=== PATIENT | female | born 2000 | race Caucasian/White ===

== ENCOUNTER 2023-05-05 19:00 | Inpatient (IN) | payer OTHER, SELFPAY ==
[2023-05-05 19:12] VITALS: BMI 25.8
[2023-05-05] MEDS: Lactated Ringers 1,000 ML 50 ML IV (19:30)
[2023-05-05 19:32] VITALS: BP 128/77; PULSE 85; RESP 16; TEMP 36.4
[2023-05-05 19:44] LABS: Absolute Lymphocyte Count 2.15 X10^3/uL (0.83-4.51); Absolute Neutrophil Count 7.8 X10^3/uL (2.0-7.7); Basophil# 0.02 X10^3/uL; Basophil% 0.2 % (0-1); Eosinophil# 0.16 X10^3/uL; Eosinophils% 1.5 % (0-5); Hemoglobin 12.9 g/dL (12.0-15.0); Lymphocyte # 2.15 X10^3/ul (0.83-4.51); Lymphocyte % 20.3 % (19-41); Mean Corp Hgb Conc 33.9 g/dL (32-36); Mean Corpuscular Hgb 31.1 pg (27.0-32.0); Mean Corpuscular Volume 91.6 fL (81-99); Mean Platelet Vol. 10.3 fl (6.2-12.0); Monocyte# 0.45 X10^3/uL; Monocyte% 4.3 % (0-10); NRBC Flagged by Analyzer 0 % (0-5); Neutrophil # 7.75 X10^3/uL (2.7-7.7); Neutrophil % 73.3 % (47-70); Platelet Count 234 K/mm3 (150-450); RBC Distribution Width CV 12.2 % (11.6-14.6); Red Blood Count 4.15 M/mm3 (4.2-5.4); White Blood Count 10.6 K/mm3 (4.4-11.0)
[2023-05-05] MEDS: 0.9% Normal Saline Single 100 ML IV.SOLN. INTRA-UTER (20:30)
[2023-05-05] MEDS: fentaNYL 100 MCG/2 ML Ampul IV (20:47)
[2023-05-05 20:52] LABS: Syphilis Antibodies Non-reactive
[2023-05-05] MEDS: miSOPROStol 25 MCG TABLET VAGINAL (21:10)
[2023-05-05 21:57] VITALS: BP 132/80; PULSE 75; RESP 16; TEMP 37.1; O2SAT 97
[2023-05-05 22:58] VITALS: BP 139/86; PULSE 79; RESP 16; TEMP 36.4; O2SAT 98
[2023-05-06] VITALS (73 sets, daily range): BP systolic 98–137; BP diastolic 54–97; PULSE 74–129; RESP 11–19; TEMP 36.4–37.7; O2SAT 96–100
[2023-05-06] MEDS: LACTATED RINGERS 500 ML 999 ML IV ×2 (01:53→04:15)
[2023-05-06] MEDS: fentaNYL-bupivacaine (epidural) 100 ML BAG EPIDURAL ×4 (02:45→16:10)
[2023-05-06] MEDS: Lactated Ringers 1,000 ML 200 ML IV ×3 (05:31→16:03)
[2023-05-06] MEDS: Oxytocin 15 Units/NS 250ml 15 UNITS/250 ML IV.SOLN 2 UNITS IV (05:46)
--- NOTE | 2023-05-06 08:40 | PCM.HP.OB ---
HPI - General General Date of Admission: 05/05/23 Date of Service: 05/06/23 Chief Complaint: induction of labor HPI Narrative BARBIE VENEGAS, is a 22 F 1 para 0 who presents at 40-5/7 weeks for induction of labor. Her has been uncomplicated to date. She has a history of vaginismus and primary dysmenorrhea and anxiety. Maternal Data Information Final GHISLAINE: 04/30/23 Gestational age: 40 6/7 PFSH PFS Medical History (Updated 05/06/23 @ 08:[address] Laura Arreaga MD) Anxiety Depression Home Medications multivit no.40-iron 18 mg-folate comb no.1 1 mg-dha 300 mg capsule 1 cap PO DAILY 05/05/23 [History Last Taken 05/04/23 22:00] Allergy/AdvReac Type Severity Reaction Status Date / Time No Known Allergies Allergy Verified 05/05/23 19:28 Surgical History (Updated 05/05/23 @ 20:08 by Moon Frank) History of surgery Social History Smoking Status: Never smoker History Elective abortions Hx Para 0 Spontaneous abortions Hx # Term Pregnancies Ectopic pregnancies Hx # Pregnancies Multiple births # of living children ROS Constitutional Constitutional: Denies fatigue, fever(s) or malaise Eyes Eyes: Denies change in vision ENT HEENT: Denies dizziness or headache(s) Cardiovascular Cardiovascular: Denies chest pain, dyspnea or lightheadedness Respiratory/Chest Respiratory/Chest: Denies cough or dyspnea Gastrointestinal Gastrointestinal: Denies change in bowel habits Genitourinary Genitourinary: Denies burning urination or genital lesions Integumentary Integumentary: Denies rash Neurologic Neurologic: Denies confusion, dizziness, headache(s), numbness or weakness Vital Signs Vital Signs Vital Signs: 05/05/23 19:32 05/05/23 19:32 05/05/23 19:32 Temperature Temperature Source Temporal Pulse Rate 85 Respiratory Rate Blood Pressure 128/77 H BP Systolic 128 BP Diastolic 77 Pulse Ox 05/05/23 19:32 05/05/23 19:32 05/05/23 21:57 Temperature 97.6 F L Temperature Source Temporal Pulse Rate Respiratory Rate 16 Blood Pressure BP Systolic BP Diastolic Pulse Ox 05/05/23 21:57 05/05/23 21:57 05/05/23 21:57 Temperature Temperature Source Pulse Rate 75 Respiratory Rate 16 Blood Pressure 132/80 H BP Systolic 132 BP Diastolic 80 Pulse Ox 05/05/23 21:57 05/05/23 21:57 05/05/23 22:58 Temperature 98.7 F Temperature Source Pulse Rate Respiratory Rate Blood Pressure 139/86 H BP Systolic 139 BP Diastolic 86 Pulse Ox 97 05/05/23 22:58 05/05/23 22:58 05/05/23 22:58 Temperature Temperature Source Pulse Rate 79 Respiratory Rate 16 Blood Pressure BP Systolic BP Diastolic Pulse Ox 98 05/05/23 22:58 05/05/23 22:58 05/06/23 00:00 Temperature 97.6 F L Temperature Source Pulse Rate Respiratory Rate Blood Pressure 130/84 H BP Systolic 130 BP Diastolic 84 Pulse Ox 98 05/06/23 00:00 05/06/23 00:00 05/06/23 00:00 Temperature Temperature Source Pulse Rate 84 85 Respiratory Rate Blood Pressure BP Systolic BP Diastolic Pulse Ox 98 05/06/23 00:00 05/06/23 00:00 05/06/23 00:00 Temperature Temperature Source Temporal Pulse Rate Respiratory Rate 16 Blood Pressure BP Systolic BP Diastolic Pulse Ox 98 05/06/23 00:00 05/06/23 00:53 05/06/23 00:53 Temperature 97.9 F Temperature Source Pulse Rate 80 Respiratory Rate Blood Pressure 125/72 H BP Systolic 125 BP Diastolic 72 Pulse Ox 05/06/23 00:52 05/06/23 00:52 05/06/23 00:52 Temperature Temperature Source Temporal Pulse Rate Respiratory Rate 16 Blood Pressure BP Systolic BP Diastolic Pulse Ox 98 05/06/23 00:52 05/06/23 02:06 05/06/23 02:06 Temperature 98.0 F Temperature Source Temporal Pulse Rate Respiratory Rate Blood Pressure 132/77 H BP Systolic 132 BP Diastolic 77 Pulse Ox 05/06/23 02:06 05/06/23 02:06 05/06/23 02:06 Temperature 97.9 F Temperature Source Pulse Rate 78 Respiratory Rate 16 Blood Pressure BP Systolic BP Diastolic Pulse Ox 05/06/23 02:33 05/06/23 02:33 05/06/23 02:32 Temperature Temperature Source Pulse Rate 102 H 97 Respiratory Rate Blood Pressure 137/90 H BP Systolic 137 BP Diastolic 90 Pulse Ox 05/06/23 02:32 05/06/23 02:38 05/06/23 02:38 Temperature Temperature Source Pulse Rate 100 Respiratory Rate Blood Pressure 133/86 H BP Systolic 133 BP Diastolic 86 Pulse Ox 99 05/06/23 02:37 05/06/23 02:37 05/06/23 02:42 Temperature Temperature Source Pulse Rate 100 105 H Respiratory Rate Blood Pressure BP Systolic BP Diastolic Pulse Ox 99 05/06/23 02:42 05/06/23 02:46 05/06/23 02:46 Temperature Temperature Source Pulse Rate 87 Respiratory Rate Blood Pressure 118/66 BP Systolic 118 BP Diastolic 66 Pulse Ox 100 05/06/23 02:47 05/06/23 02:47 05/06/23 02:47 Temperature Temperature Source Temporal Pulse Rate 91 Respiratory Rate 16 Blood Pressure BP Systolic BP Diastolic Pulse Ox 05/06/23 02:47 05/06/23 02:47 05/06/23 02:48 Temperature 98.3 F Temperature Source Pulse Rate Respiratory Rate Blood Pressure 115/64 BP Systolic 115 BP Diastolic 64 Pulse Ox 99 05/06/23 02:48 05/06/23 02:50 05/06/23 02:50 Temperature Temperature Source Pulse Rate 90 96 Respiratory Rate Blood Pressure 111/62 BP Systolic 111 BP Diastolic 62 Pulse Ox 05/06/23 02:53 05/06/23 02:53 05/06/23 02:52 Temperature Temperature Source Pulse Rate 103 H 101 H Respiratory Rate Blood Pressure 113/62 BP Systolic 113 BP Diastolic 62 Pulse Ox 05/06/23 02:52 05/06/23 02:40 05/06/23 02:57 Temperature Temperature Source Pulse Rate 95 Respiratory Rate 18 Blood Pressure BP Systolic BP Diastolic Pulse Ox 98 05/06/23 02:50 05/06/23 02:45 05/06/23 02:57 Temperature Temperature Source Pulse Rate Respiratory Rate 18 18 Blood Pressure BP Systolic BP Diastolic Pulse Ox 98 05/06/23 02:58 05/06/23 02:58 05/06/23 02:55 Temperature Temperature Source Pulse Rate 97 Respiratory Rate 16 Blood Pressure 116/62 BP Systolic 116 BP Diastolic 62 Pulse Ox 05/06/23 03:00 05/06/23 03:02 05/06/23 03:02 Temperature Temperature Source Pulse Rate 84 Respiratory Rate 16 Blood Pressure BP Systolic BP Diastolic Pulse Ox 99 05/06/23 03:03 05/06/23 03:03 05/06/23 03:07 Temperature Temperature Source Pulse Rate 85 119 H Respiratory Rate Blood Pressure 109/62 BP Systolic 109 BP Diastolic 62 Pulse Ox 05/06/23 03:07 05/06/23 03:09 05/06/23 03:09 Temperature Temperature Source Pulse Rate 83 Respiratory Rate Blood Pressure 113/62 BP Systolic 113 BP Diastolic 62 Pulse Ox 99 05/06/23 03:13 05/06/23 03:13 05/06/23 03:12 Temperature Temperature Source Pulse Rate 83 80 Respiratory Rate Blood Pressure 117/57 L BP Systolic 117 BP Diastolic 57 Pulse Ox 05/06/23 03:12 05/06/23 03:18 05/06/23 03:18 Temperature Temperature Source Pulse Rate 100 Respiratory Rate Blood Pressure 113/61 BP Systolic 113 BP Diastolic 61 Pulse Ox 98 05/06/23 03:17 05/06/23 03:17 05/06/23 03:23 Temperature Temperature Source Pulse Rate 87 Respiratory Rate Blood Pressure 107/55 L BP Systolic 107 BP Diastolic 55 Pulse Ox 98 05/06/23 03:23 05/06/23 03:22 05/06/23 03:22 Temperature Temperature Source Pulse Rate 96 101 H Respiratory Rate Blood Pressure BP Systolic BP Diastolic Pulse Ox 99 05/06/23 03:27 05/06/23 03:27 05/06/23 03:28 Temperature Temperature Source Pulse Rate 83 Respiratory Rate Blood Pressure 105/67 BP Systolic 105 BP Diastolic 67 Pulse Ox 100 05/06/23 03:28 05/06/23 03:32 05/06/23 03:32 Temperature Temperature Source Pulse Rate 85 90 Respiratory Rate Blood Pressure BP Systolic BP Diastolic Pulse Ox 100 05/06/23 03:34 05/06/23 03:34 05/06/23 03:37 Temperature Temperature Source Pulse Rate 96 104 H Respiratory Rate Blood Pressure 102/59 L BP Systolic 102 BP Diastolic 59 Pulse Ox 05/06/23 03:37 05/06/23 03:38 05/06/23 03:38 Temperature Temperature Source Pulse Rate 111 H Respiratory Rate Blood Pressure 112/59 L BP Systolic 112 BP Diastolic 59 Pulse Ox 100 05/06/23 03:42 05/06/23 03:42 05/06/23 03:45 Temperature Temperature Source Pulse Rate 98 Respiratory Rate Blood Pressure 103/56 L BP Systolic 103 BP Diastolic 56 Pulse Ox 100 05/06/23 03:45 05/06/23 03:48 05/06/23 03:48 Temperature Temperature Source Pulse Rate 80 83 Respiratory Rate Blood Pressure 105/58 L BP Systolic 105 BP Diastolic 58 Pulse Ox 05/06/23 03:47 05/06/23 03:47 05/06/23 04:11 Temperature Temperature Source Temporal Pulse Rate 85 Respiratory Rate Blood Pressure BP Systolic BP Diastolic Pulse Ox 100 05/06/23 04:12 05/06/23 04:12 05/06/23 04:11 Temperature Temperature Source Pulse Rate 108 H Respiratory Rate 16 Blood Pressure 98/54 L BP Systolic 98 BP Diastolic 54 Pulse Ox 05/06/23 04:11 05/06/23 04:12 05/06/23 04:12 Temperature 98.7 F Temperature Source Pulse Rate 98 Respiratory Rate Blood Pressure BP Systolic BP Diastolic Pulse Ox 99 05/06/23 04:16 05/06/23 04:16 05/06/23 04:17 Temperature Temperature Source Pulse Rate 94 88 Respiratory Rate Blood Pressure 112/67 BP Systolic 112 BP Diastolic 67 Pulse Ox 05/06/23 04:17 05/06/23 04:21 05/06/23 04:21 Temperature Temperature Source Pulse Rate 92 Respiratory Rate Blood Pressure 118/72 BP Systolic 118 BP Diastolic 72 Pulse Ox 98 05/06/23 04:22 05/06/23 04:22 05/06/23 04:26 Temperature Temperature Source Pulse Rate 108 H Respiratory Rate Blood Pressure 111/69 BP Systolic 111 BP Diastolic 69 Pulse Ox 99 05/06/23 04:26 05/06/23 05:18 05/06/23 05:18 Temperature Temperature Source Temporal Pulse Rate 90 Respiratory Rate Blood Pressure 102/54 L BP Systolic 102 BP Diastolic 54 Pulse Ox 05/06/23 05:18 05/06/23 05:18 05/06/23 05:18 Temperature 98.7 F Temperature Source Pulse Rate 108 H Respiratory Rate 16 Blood Pressure BP Systolic BP Diastolic Pulse Ox 05/06/23 06:25 05/06/23 06:25 05/06/23 06:25 Temperature Temperature Source Temporal Pulse Rate 93 Respiratory Rate Blood Pressure 108/55 L BP Systolic 108 BP Diastolic 55 Pulse Ox 05/06/23 06:25 05/06/23 06:25 05/06/23 06:25 Temperature 98.9 F Temperature Source Pulse Rate 95 Respiratory Rate 16 Blood Pressure BP Systolic BP Diastolic Pulse Ox 05/06/23 06:25 05/06/23 07:29 05/06/23 07:29 Temperature Temperature Source Pulse Rate 97 Respiratory Rate Blood Pressure 130/73 H BP Systolic 130 BP Diastolic 73 Pulse Ox 97 05/06/23 07:29 05/06/23 07:29 05/06/23 07:29 Temperature 98.9 F Temperature Source Temporal Pulse Rate Respiratory Rate 16 Blood Pressure BP Systolic BP Diastolic Pulse Ox Weight Weight: 68.3 kg Body Mass Index (BMI) 25.8 Physical Exam Const alert and no apparent distress General Appearance: cooperative HEENT normocephalic Resp normal respiratory effort Cardio regular rate GI soft to palpation GI Narrative: gravid, nontender, appropriate for gestational age Extremity no calf tenderness General Extremity: edema Skin no wounds Rashes: No rashes noted Psych activity/motor behavior normal Labs Labs Labs: Blood Type O POSITIVE Antibody Screen NEGATIVE Hct 38.0 % (37-47) Hgb 12.9 g/dL (12.0-15.0) Syphilis Total Ab Non-reactive Assessment & Plan (1) 40 weeks gestation of : PLAN: Estimated weight is less than 4500 g clinically and pelvis clinically adequate to expect vaginal delivery. Patient was given nitrous oxide and IV fentanyl to help with anxiety for cervical exams. Max was placed over stylette through the internal cervical os with incidental rupture of membranes with clear fluid. This was performed at approximately 9 PM last night. Patient and fetus tolerated the procedure well. Given 1 dose of Cytotec vaginally. Will initiate Pitocin and titrate as needed. May have routine pain control measures as needed. (2) Nulliparity:
[2023-05-06] MEDS: Ondansetron 4 MG/2 ML Vial IV (13:41)
[2023-05-06] MEDS: Sodium Citrate/Citric Acid 30 ML UDC PO (18:41)
[2023-05-06] MEDS: CHLORHEXIDINE GLUC 2% CLOTH 1 EACH TOWELETTE TOPICAL (18:43)
--- NOTE | 2023-05-06 18:46 | OP.PCM_ITS ---
Assessment & Plan (1) CPD (cephalo-pelvic disproportion): (2) Arrest of descent, delivered, current hospitalization: Maternal Data Information Final GHISLAINE: 05/07/23 Gestational age: 40 6/7 Details Operative Information Date of Procedure: 05/06/23 Pre-Operative Diagnosis: cpd, arrest of descent, failed trial of vacuum Post-Operative Diagnosis: same Classification: DORON Procedure Type: low transverse amusement equipment operator #1: Aguila Leon Type of Anesthesia: Epidural Anesthesiologist: Dajuan Schroeder Special Medications: duramorph Antibiotic Given: Ancef 2 grams IV x1 and Zithromax 500 mg/5 mL X1 Drain: Max to straight drain Estimated Blood Loss: 900 Fluids Replaced: 1000 Procedure Start Time: 19:04 Procedure Stop Time: 19:40 Time of Delivery: 19:10 Findings Description of Procedure: The patient's labor progressed to complete and pushing. She pushed for approximately 3 hours from 0 station at approximately +2 station. She was pushing with good effort. Bladder was emptied with a Max catheter. Estimated weight is less than 4500 g, pelvis clinically adequate to expect vaginal delivery. Position was manually rotated from ROP to IVANIA. I discussed with the patient option of attempted vacuum-assisted vaginal delivery as she was getting very fatigued and had been pushing for 3 hours. The patient and her desire to proceed with trial of vacuum. Vacuum was placed on the flexion point and I pulled with 4 contractions and 2 pop-off's. The first pop off occured with the first pull, with subsequent pulls the station seem to progress. With the fourth pull another pop-off was noted and the head restituted back to about a +3 station. I discussed with the patient the option at this point to continue pushing but I felt that the likelihood of progression to vaginal delivery would be low. We discussed recommendation to proceed with primary section, patient desired to proceed. The patient was taken to the operating room. She was prepped and draped in the dorsal supine position with a leftward tilt. A Pfannenstiel skin incision was made approximately 2 cm above the symphysis pubis and carried through to und erlying layer fascia with the scalpel. The fascia was incised incised in the midline and extended laterally with the Hilario scissors. The fascia was dissected off the rectus muscles with blunt and sharp dissection. The rectus muscles were in the midline and the peritoneum was entered bluntly. The peritoneal incision was stretched and the bladder blade was placed. The uterine incision was made in a low transverse fashion with the scalpel and extended superiorly and inferiorly with blunt dissection. It was very difficult to wedge my hand down under the scalp. I did use a red rubber catheter to help break the suction. A hand from below was used and I was able to bring the head up to the incision. However when trying to engage it into the incision the baby flipped to transverse and I had to push the head up to convert the baby to breech. I brought the feet out and turned the baby to back up and delivered through the trunk. Gentle fundal pressure was applied to the head during this time. I swept the arms out individually and then brought the baby up and with gentle traction on the mandible and fundal pressure was able to deliver the head. The mouth and nares were bulb suctioned. The cord was clamped and cut as the infant was stimulated. Cord clamping was not delayed. The infant was handed off to the waiting nursing staff. The placenta was delivered with fundal massage and gentle traction in the standard fashion. The uterus was exteriorized and cleared of all clots and debris. There was a small extension down the left side of the cervix.. The uterine incision was closed with #1 Vicryl in a running locked fashion. A second layer of the same suture was used in an imbricating fashion. An 0 Vicryl suture was needed and a bleeding sinus on the left side to obtain hemostasis. The incision was examined and was found to be hemostatic. The uterus was placed back into the peritoneal cavity and hemostasis was again confirmed. Some hemoblast was placed over the uterine incision and pressure was held for 2 minutes and no active bleeding was noted. The rectus muscles were examined and any bleeding was Bovie cauterized. The parietal peritoneum and rectus muscles were closed en bloc with an 0 Vicryl running suture. The rectus fascia was examined and any bleeding was Bovie cauterized and the rectus fascia was closed with 1 Vicryl suture in a running standard fashion. The subcutaneous tissue was examining and any bleeding was Bovie cauterized. Some hemoblast was placed in that layer as well. The subcutaneous tissue was reap proximated with 3-0 Vicryl suture. The skin was closed in a subcuticular fashion with Monocryl suture in a subcuticular fashion. I performed the entire procedure with assistance. Dr. Leon provided fundal pressure, tissue retraction and tissue manipulation during the surgery. No qualified residents were available.. All sponge, lap, and needle counts were correct. The patient was taken to her room for recovery in a stable condition. Presentation: Positive for Vertex Amniotic Membrane Rupture Type: Artificial Amniotic Fluid Description: Clear Placental Delivery Description: Expressed Placenta Disposition: [facility] Specimen(s) Sent to Pathology: placenta Cord Vessel Description: 3 Vessels Cord Entanglement: None Cord Gases: ABG and VBG Infant A Gender: Male (Theo) (1 minute): 7 (5 minute): 9 Delayed Cord Clamping: No Complications Complications: none
[2023-05-06] MEDS: Cefazolin 2 GM in 0.9% Normal Saline (100mL Bag) 100 ML IV (18:51)
[2023-05-06] MEDS: Azithromycin 500 MG in Dextrose 5%-Water (250mL Bag) 250 ML 250 MG IV (19:51)
[2023-05-06] MEDS: Oxytocin 15 Units/NS 250ml 15 UNITS/250 ML IV.SOLN 83 UNITS IV (20:15)
[2023-05-06] MEDS: Ketorolac 30 MG/ML Syringe IV (20:39)
[2023-05-06] MEDS: Acetaminophen 500 MG Tablet 1000 MG PO (20:40)
--- NOTE | 2023-05-06 22:20 | NURSING ---
Epidural catheter removed with blue tip intact. Pad change and ice pack changed by this RN.
[2023-05-06] MEDS: Lactated Ringers 1,000 ML 100 ML IV (23:20)
[2023-05-07] VITALS (12 sets, daily range): BP systolic 106–133; BP diastolic 66–88; PULSE 83–108; RESP 14–18; TEMP 36.4–36.8; O2SAT 95–100
[2023-05-07] MEDS: Acetaminophen 500 MG Tablet 1000 MG PO ×4 (02:45→21:06)
[2023-05-07] MEDS: Ketorolac 30 MG/ML Syringe IV ×3 (02:45→14:15)
[2023-05-07 04:45] LABS: Hematocrit 26.2 % (37-47); Hemoglobin 8.6 g/dL (12.0-15.0); Mean Corp Hgb Conc 32.8 g/dL (32-36); Mean Corpuscular Hgb 30.6 pg (27.0-32.0); Mean Corpuscular Volume 93.2 fL (81-99); Mean Platelet Vol. 10.4 fl (6.2-12.0); Platelet Count 196 K/mm3 (150-450); RBC Distribution Width CV 12.3 % (11.6-14.6); RBC Distribution Width SD 42.2 fl (35.1-43.9); Red Blood Count 2.81 M/mm3 (4.2-5.4); White Blood Count 20.8 K/mm3 (4.4-11.0)
--- NOTE | 2023-05-07 08:14 | PCM.PN.OB ---
Subjective Subjective Tired but doing well. Max still in place. Pain manageable. Objective Data Objective Data Vital Signs: Vital Signs Temp Pulse Resp BP Pulse Ox O2 Del Method 97.5 F L 89 16 106/67 99 Room Air 05/07/23 04:31 05/07/23 06:08 05/07/23 06:08 05/07/23 04:31 05/07/23 06:08 05/07/23 06:08 Oxygen Delivery Method Room Air Weight: 68.3 kg Body Mass Index (BMI) 25.8 Intake & Output: Intake and Output for Last 24 Hours 05/05/23 05/06/23 05/07/23 23:59 23:59 23:59 Intake Total 5441.46 / 5441.46 Output Total 5700 / 5700 400 / 400 Balance -258.54 / -258.54 -400 / -400 Lab / Micro Data Attestation: I reviewed the patient's lab results. 05/07/23 04:37 Labs: Laboratory Results - last 24 hr 05/07/23 04:37: WBC 20.8 H, RBC 2.81 L, Hgb 8.6 L, Hct 26.2 L, MCV 93.2, MCH 30.6, MCHC 32.8, RDW Std Deviation 42.2, RDW Coeff of Mihaela 12.3, Plt Count 196, MPV 10.4 Physical Exam Const alert General Appearance: cooperative GI GI Narrative: soft, moderate distention, fundus firm, appropriately tender. Abdominal bandage clean dry and intact Assessment & Plan (1) Arrest of descent, delivered, current hospitalization: (2) Postcesarean section: (3) 40 weeks gestation of : (4) Anemia: QUALIFIERS: Anemia type: other cause PLAN: iron supplement
[2023-05-07] MEDS: Senna/Docusate Sodium 1 Tablet PO (09:03)
[2023-05-07] MEDS: 0.9% Saline Lock 10 ML Syringe IV ×2 (09:05→14:15)
[2023-05-07] MEDS: Phenol/Sodium Phenolate 180ML 3 SPRAY MUCOUS MEM (12:42)
--- NOTE | 2023-05-07 14:08 | CASEMGMT ---
Social Work Assessment Labor and Delivery Unit Patient Address:[address] [place] [address] [address], [place] [address] Phone number: [phone] Date of Referral: 05/06/23 Time of Referral:? 2102 Referred By: Laura Arreaga Date of Intervention: 05/07/23?? Time of Intervention:? 1300 Reason for Referral:? anxiety/ depression. transferred to [facility] NICU Sw completed chart review and acknowledges social work consult due to maternal mental health history positive for anxiety and depression. Sw presented to bedside and introduced self to mother of baby (TORIE Donald) and maternal grandma who was currently visiting with patient. MOB stated that it was ok for sw to continue with assessment with maternal grandma present. History obtained from: medical records, MOB Household composition: Currently residing in the family home is ROBYN, INES and now baby. MOB denies any issues or concerns with housing. Patient's parent/guardian status:? ?MOB states that she and FOB met online, but due to living far apart from each other did not have their first date for quite a while. MOB states that they played video games together, until he came to her house (while still residing with her parents) and they had their first date. MOB states that they have been together for 4.5 years. MOB denies domestic violence or intimate partner violence. Medical History: ?ROBYN is 22 year old female who is 1, para 0- now 1 following labor and delivery of . ROBYN received routine care during with [facility]. ROBYN presented to hospital for an induction of labor. ROBYN required due to arrest of descent after trailing a vacuum assist. Following delivery baby was transferred to [facility] NICU due to increased head swelling following failed vacuum assist delivery. Baby boy, named Theo Ogden, was born on [birth year] at 40 weeks gestation weighing 8lb 9oz and his apgars were 7 and 9 at one and five minutes of life, respectfully. While meeting with MOB this afternoon she noted that baby is leaving [facility] NICU and is on his way to be with her. Educational Status:? Both parents graduated from high school. FOB obtained his bachelors degree. No concerns with reading, learning or comprehension noted. 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 MOB states that she was working for [employer], until she became and got really sick with . Infant Supplies:?? MOB states that they have obtained all necessary baby supplies, including: car seat, safe sleep space, clothes, diapers and wipes. MOB states that she is breast feeding and has a pump for home. Childcare/Caregiver(s):? ROBYN will be the primary caregiver to baby along with INES when he is not at work. MOB states that both sets of grandparents are helpful and supportive and will be able to help out to when necessary. Transportation:??No barriers- both parents have their drivers license and reliable means of transportation. Programs/Agencies Involved: ???MOB states that she is not connected to any community agencies that help them financially. MOB states that she is interested in reaching out to [facility] to see if they are eligible now that they only have one income and a dependent. - MOB states that she used to be in counseling- but found it challenging to open up. MOB states that since discovering she was going to have a baby, she has thought about starting counseling again. MOB states that she is open to this. Children Services/Legal Issues:???No history of children services involvement. No issues or concerns warranting referral to be made at this time. Behavioral Health Issues: ??Mental Health History:??INES does not have any mental health diagnoses. MOB states that she has been diagnosed with anxiety and depression. MOB states that while talking with a counselor in the past, they were reviewing diagnoses criteria for Borderline Personality Disorder and Bipolar. ROBYN states that she was never officially given one of those diagnoses, but believes that she does have one. ROBYN states that she started to struggle with her mental health when she was 14 years old. MOB states that she was prescribed medications at that time (does not remember names) however she did not find them to be helpful so when she turned 17 she quit taking them. ROBYN states that her mental health is something that she has always struggled with, and admits to having thoughts of hurting herself/ suicide daily. MOB states that she does not have a plan, or an intent to hurt herself, just thoughts of not wanting to be alive anymore. MOB states that she knows this is not healthy, and is open to getting connected to help. ROBYN completed [place] Depression Scale, her score was 21. Sw provided education and support. MOB stated that she is receptive to starting medication to help her during this period. Sw encouraged MOB to talk to her OBGYN about this tomorrow. MOB agreed. ? Substance Use History:?MOB denies substance use prior to and during ? Family History:?MOB denies family history of substance use/ addiction and significant mental health history such as bipolar and schizophrenia.? Drug Screens: No drug screens observed in chart review. ?? Family/Social Stressors:? MOB states denies any issues, concerns or stressors. MOB is able to recognize that her mental health history, traumatic delivery and baby going to NICU are all contributing factors to her mental health during this period. MOB is receptive to mental health services and supports and psychotropic medication to assist her. Support Systems: MOB states that both sets of grandparents are supportive. Depression/Shaken Baby/Safe Sleeping:?Sw spoke to MOB at length regarding signs and symptoms of baby blues, depression and anxiety. MOB states that FOB is also a big support for her and he would be able to recognize if MOB were struggling mentally. MOB states that FOB would also know how to help and support her if she were struggling with her mental health. Sw educated MOB on shaken baby prevention and ABCs of safe sleep. MOB expressed understanding. ASSESSMENT:? MOB and baby are admitted following labor and delivery of . MOB with mental health history positive for anxiety, depression and potentially bipolar or borderline personality disorder. MOB completed the [place] Depression scale and her score was 21. MOB expressed understanding of importance of managing her mental health symptoms during her period. MOB states that she has a lot of natural supports in place and has obtained all necessary baby items. MOB made and maintained eye contact throughout completion of psychosocial assessment. MOB was open and talkative, although she did not want to discuss about what initiated her mental health symptoms when she was a teenager. PLAN:?MOB and baby to be discharged when medically ready. Sw to touch base with MOB prior to discharge. ?No other services requested or indicated. Ion Viera, [employer], GLOBAL MARKETING MANAGER
[2023-05-07] MEDS: SimETHICONE 80 MG Chewable Tablet PO (14:16)
[2023-05-07] MEDS: Ferrous Gluconate 324 MG Tablet PO (19:54)
[2023-05-07] MEDS: Ibuprofen 600 MG Tablet PO (21:06)
[2023-05-08] MEDS: Ibuprofen 600 MG Tablet PO ×4 (03:48→21:54)
[2023-05-08] MEDS: Acetaminophen 500 MG Tablet 1000 MG PO ×4 (03:48→21:54)
[2023-05-08 04:30] VITALS: BP 123/75; PULSE 80; RESP 18; TEMP 36.3; O2SAT 100
[2023-05-08] MEDS: 0.9% Saline Lock 10 ML Syringe IV (04:34)
[2023-05-08] MEDS: Ferrous Gluconate 324 MG Tablet PO ×2 (08:37→20:06)
[2023-05-08 08:45] VITALS: BP 122/81; PULSE 89; RESP 15; TEMP 36.6; O2SAT 99
--- NOTE | 2023-05-08 08:45 | PCM.PN.OB ---
Subjective Subjective Pain controlled. Denies feeling dizzy. Objective Data Objective Data Vital Signs: Vital Signs Temp Pulse Resp BP Pulse Ox O2 Del Method 97.3 F L 80 18 123/75 H 100 Room Air 05/08/23 04:30 05/08/23 04:30 05/08/23 04:30 05/08/23 04:30 05/08/23 04:30 05/08/23 04:30 Oxygen Delivery Method Room Air Weight: 150 lb 9.211 oz Body Mass Index (BMI) 25.8 Intake & Output: Intake and Output for Last 24 Hours 05/06/23 05/07/23 05/08/23 23:59 23:59 23:59 Intake Total 5441.46 / 5441.46 1000 / 1000 Output Total 5700 / 5700 600 / 600 Balance -258.54 / -258.54 400 / 400 Lab / Micro Data 05/07/23 04:37 Physical Exam Const alert, oriented x3 and no apparent distress HEENT normocephalic GI soft to palpation, non-tender and non-distended GI Narrative: fundus firm, mid & below umbilicus Incision - bandage c/d/i Extremity normal to inspection and no calf tenderness Assessment & Plan (1) Postcesarean section: (2) Anemia: QUALIFIERS: Anemia type: unspecified type Qualified Code(s): D64.9 - Anemia, unspecified PLAN: Plan Heme - HDS. check repeat CBC and consider IV iron. Routine care
[2023-05-08 09:05] LABS: Hematocrit 24.6 % (37-47); Mean Corp Hgb Conc 32.5 g/dL (32-36); Mean Corpuscular Hgb 30.7 pg (27.0-32.0); Mean Corpuscular Volume 94.3 fL (81-99); Mean Platelet Vol. 10.1 fl (6.2-12.0); Platelet Count 206 K/mm3 (150-450); RBC Distribution Width CV 12.8 % (11.6-14.6); RBC Distribution Width SD 43.4 fl (35.1-43.9); Red Blood Count 2.61 M/mm3 (4.2-5.4); White Blood Count 12.5 K/mm3 (4.4-11.0)
[2023-05-08 14:00] VITALS: BP 115/72; PULSE 90; RESP 15; TEMP 36.8; O2SAT 99
--- NOTE | 2023-05-08 14:28 | NURSING ---
pt given a abd binder for comfort
[2023-05-08] MEDS: oxyCODONE 5 MG Tablet PO (17:56)
[2023-05-08 19:57] VITALS: BP 131/89; PULSE 92; RESP 18; TEMP 36.6; O2SAT 99
[2023-05-09 02:22] VITALS: BP 112/63; PULSE 62; RESP 16; TEMP 36.2; O2SAT 97
[2023-05-09] MEDS: Ibuprofen 600 MG Tablet PO ×3 (04:05→16:26)
[2023-05-09] MEDS: Acetaminophen 500 MG Tablet 1000 MG PO ×3 (04:05→16:27)
[2023-05-09] MEDS: oxyCODONE 5 MG Tablet PO (06:49)
[2023-05-09 08:00] VITALS: BP 120/87; PULSE 64; RESP 14; TEMP 36.4; O2SAT 97
--- NOTE | 2023-05-09 08:19 | PCM.PROGNOTE ---
Subjective Subjective patient seen at bedside, doing well. Patient reports good pain control. lochia mild. Denies Dizziness, CP, sob. reports feelings of PP depression. Denies SI plan, has good support at home, reports previously took wellbutrin and did well- requesting rx. Objective Data Objective Data Vital Signs: Vital Signs Temp Pulse Resp BP Pulse Ox O2 Del Method 97.2 F L 62 16 112/63 97 Room Air 05/09/23 02:22 05/09/23 02:22 05/09/23 02:22 05/09/23 02:22 05/09/23 02:22 05/09/23 02:22 Oxygen Delivery Method Room Air Weight: 68.3 kg Body Mass Index (BMI) 25.8 Intake & Output: Intake and Output for Last 24 Hours 05/07/23 05/08/23 05/09/23 23:59 23:59 23:59 Intake Total 1000 / 1000 Output Total 600 / 600 Balance 400 / 400 Lab / Micro Data 05/08/23 08:50 Labs: Laboratory Results - last 24 hr 05/08/23 08:50: WBC 12.5 H, RBC 2.61 L, Hgb 8.0 L, Hct 24.6 L, MCV 94.3, MCH 30.7, MCHC 32.5, RDW Std Deviation 43.4, RDW Coeff of Mihaela 12.8, Plt Count 206, MPV 10.1 Physical Exam Narrative Abd: dressing dry and intact. fundus firm. Const alert and oriented x3 General Appearance: cooperative HEENT normocephalic Neck General: normal visual inspection GI soft to palpation and non-distended GI Narrative: Fundus firm Extremity normal to inspection and no calf tenderness Skin no rashes or lesions noted Neuro oriented x3 and CN's II-XII intact bilaterally Psych mental status grossly normal Assessment & Plan Assessment/Plan (1) Anemia: QUALIFIERS: Anemia type: unspecified type Qualified Code(s): D64.9 - Anemia, unspecified (2) Postcesarean section: (3) Arrest of descent, delivered, current hospitalization: (4) CPD (cephalo-pelvic disproportion): (5) Depression: PLAN: Plan POD# 3 , Doing well Routine care pain mgmt monitor VS ambulation start wellbutrin encouraged counseling dc hotel status Time spent with patient on day of discharge less than 30 minutes
--- NOTE | 2023-05-09 08:22 | DCINST_ITS ---
Discharge Instructions Diet Discharge Diet: No restrictions Activity May resume sexual activity in: 6-8 weeks Lifting Restrictions: 25 Dressing / Incision Call your doctor if your incision/area has: Continuous Slow Oozing, Sudden Increased Bleeding, Increased Pain/ Swelling, Increased Redness, Foul Smelling Discharge and Swelling at the incision site Call your doctor if you observe: Fever of 101 or Higher, Inability to urinate, Using more than 1 pad per hour and Uncontrolled pain Additional Dressing/Incision Instructions:: remove dressing at 7 days post op- if it becomes saturated prior to that time you may remove it. Let soap and water run over incision sites and dab dry. keep incision clean and dry. Follow Up Care Please Follow Up With: Agustina Huerta MD When: 1-2 weeks post of incision check and again at 6 weeks post . [phone] Test Results: Test results from this visit will be discussed in further detail at your follow- up appointment, if applicable. Discharge Plan Admission Admit Date/Time: 05/05/23 19:00 Attending Provider: Laura Arreaga Primary Care Provider: Gopi Alves Discharge Orders/Prescriptions Prescriptions: New acetaminophen 500 mg Tablet 1,000 mg PO Q6H Qty: 0 0RF ibuprofen 600 mg Tablet 600 mg PO Q6H Qty: 0 0RF oxycodone 5 mg Tablet 5 - 10 mg PO Q4H PRN PRN (Reason: Pain Score 4-10) 5 Days Qty: 10 0RF bupropion HCl 150 mg Tablet Extended Release 24 Hr 150 mg PO DAILY 30 Days Qty: 30 11RF Continued multivit [id number] 1-dha 18 mg iron- 1 mg-300 mg capsule 1 cap PO DAILY Referrals / Follow Up: Gopi Alves MD [Primary Care Provider] - Disposition Disposition (needs filled in before D/C Order can be placed): Home, Self Care
--- NOTE | 2023-05-09 08:27 | PCM.DC.BLA ---
Discharge Summary Date of Admission: 05/05/23 Date of Discharge: 05/09/23 Summary: Patient was admitted to [facility] for labor induction at 40 weeks and 5 days gestation progressed to fully dilated and pushed with a failed vacuum attempt underwent a primary section performed by Dr. Laura Areraga. Had acute blood loss anemia and had a normal postoperative course. Discharged home on postoperative day #3 in stable condition. Meaningful Use Info Meaningful Use Diagnoses (Choose all that apply): None applicable Discharge Plan Admission Admit Date/Time: 05/05/23 19:00 Attending Provider: Laura Arreaga Primary Care Provider: Gopi Alves Discharge Orders/Prescriptions Prescriptions: New acetaminophen 500 mg Tablet 1,000 mg PO Q6H Qty: 0 0RF ibuprofen 600 mg Tablet 600 mg PO Q6H Qty: 0 0RF oxycodone 5 mg Tablet 5 - 10 mg PO Q4H PRN PRN (Reason: Pain Score 4-10) 5 Days Qty: 10 0RF bupropion HCl 150 mg Tablet Extended Release 24 Hr 150 mg PO DAILY 30 Days Qty: 30 11RF Continued multivit [id number] 1-dha 18 mg iron- 1 mg-300 mg capsule 1 cap PO DAILY Referrals / Follow Up: Gopi Alves MD [Primary Care Provider] - Disposition Disposition (needs filled in before D/C Order can be placed): Home, Self Care
[2023-05-09] MEDS: Ferrous Gluconate 324 MG Tablet PO ×2 (09:02→18:30)
[2023-05-09] MEDS: Senna/Docusate Sodium 1 Tablet PO (09:03)
[2023-05-09] MEDS: buPROPion (XL) 150 MG TABLET.XL PO (09:26)
--- NOTE | 2023-05-09 09:42 | NURSING ---
Pt reports feelings of PP depression. New order for wellbutrin initiated. Pt reports anxiety around with unexpected c/section and baby transfer. Reports I think everything is just now hitting me. States So much happened in such a short time. Emotional support offered. Charge nurse and social media intern notified for additional support. This RN remained with pt and accompanied to special care nursery. immigration consultant with patient at present.
[2023-05-09 13:55] VITALS: BP 127/64; PULSE 92; RESP 16; TEMP 36.6; O2SAT 97
--- NOTE | 2023-05-13 15:26 | NURSING ---
05/13/23 Follow up questions asked in person at visit with Daysi. Pt doing well. Denies s+s. No questions or concerns. going okay, but infant tongue tied and pt having nipple soreness. Following up with [facility] as needed for support.
== END 2023-05-09 18:35 | disposition home or self-care (01) | DRG 787 ==
PROVIDERS: Obstetrics & Gynecology; Admitting Provider Obstetrics & Gynecology; PCP Family Medicine; Referring Provider Obstetrics & Gynecology; Visit Provider Obstetrics & Gynecology
DX: O62.1 Secondary uterine inertia (principal); D62 Acute posthemorrhagic anemia; F32.A Depression, unspecified; Z37.0 Single live birth; O90.81 Anemia of the puerperium; O99.344 Other mental disorders complicating childbirth; Z3A.40 40 weeks gestation of pregnancy; O66.5 Attempted application of vacuum extractor and forceps
CPT/HCPCS: 59025; 59050; 85025; 85027; 86780; 86850; 86900; 86901; 99221; J7120; A4216; G0378; J2405